=== PATIENT | male | born 2000 | race Caucasian/White ===

== ENCOUNTER 2025-05-18 03:32 | Emergency (ER) | payer BC ==
[~2025-05-18] VITALS: Ht 180.3 cm; Wt 94.5 kg
[2025-05-18 03:36] VITALS: O2SAT 97
[2025-05-18 03:38] VITALS: BP 11/90; PULSE 118; RESP 18; TEMP 36.8; O2SAT 98
[2025-05-18 05:39] LABS: BASOPHILS % 0.9 % (0.0-2.0); EOSINOPHILS % 0.7 % (0.0-5.0); HEMATOCRIT. 44.3 % (42.0-52.0); HEMOGLOBIN. 14.9 g/dL (14.0-18.0); LYMPHOCYTES % 14.1 % (20.0-50.0); MEAN PLATELET VOLUME 8.2 fl (7.4-10.4); MONOCYTES % 9.0 % (2.0-8.0); NEUTROPHILS % 75.3 % (40.0-76.0); PLATELET 226 x1000/uL (130-400); RED BLOOD CELL COUNT 5.40 mill/uL (4.7-6.1); RED CELL DISTRIBUTION WIDTH 13.4 % (11.6-14.6)
[2025-05-18 05:57] LABS: CREATININE 1.1 mg/dL (0.6-1.3); UREA NITROGEN BLOOD 11 mg/dL (9-23)
[2025-05-18 06:02] LABS: T4 FREE 1.33 ng/dL (0.89-1.76)
== END 2025-05-18 06:53 | disposition home or self-care (01) ==
LOC: ER 03:32
DX: F41.9 Anxiety disorder, unspecified (principal); R11.2 Nausea with vomiting, unspecified; R23.2 Flushing; E03.9 Hypothyroidism, unspecified; Z88.0 Allergy status to penicillin; Z88.1 Allergy status to other antibiotic agents; Z72.0 Tobacco use
CPT/HCPCS: 36415; 80048; 84439; 84443; 84481; 85025; 93005; 99284